=== PATIENT | female | born 1970 | race Caucasian/White ===

== ENCOUNTER → 2022-06-21 | Outpatient (CLI) | payer OTHER | LOC: M RAD 06:33 | PROVIDERS: ATTEND Physician Assistant Medical | DX: M25.532 Pain in left wrist (principal) ==

== ENCOUNTER 2023-09-20 08:48 | Emergency (ER) | payer OTHER ==
[~2023-09-20] VITALS: Ht 167.6 cm; Wt 69.9 kg
[2023-09-20 12:05] VITALS: BP 143/63; TEMP 98.7; O2SAT 97
[2023-09-20] MEDS: IBUPROFEN 600MG TAB PO ONE (12:32)
[2023-09-20] MEDS ORDERED: IBUP-1022 PO (13:33)
[2023-09-20] MEDS ORDERED: METH-1164 PO (13:33)
== END 2023-09-20 13:44 | disposition home or self-care (01) ==
LOC: M ED 08:48
DX: S43.402A Unspecified sprain of left shoulder joint, initial encounter (principal); S60.222A Contusion of left hand, initial encounter; X50.0XXA Overexertion from strenuous movement or load, initial encounter; Y92.9 Unspecified place or not applicable; Y93.89 Activity, other specified; Y99.0 Civilian activity done for income or pay

== ENCOUNTER → 2024-04-16 | Outpatient (CLI) | payer OTHER ==
[~2024-04-16] MED LIST: IBUP-1022 PO; METH-1164 PO
== END ==
LOC: M SOG 13:01
PROVIDERS: ATTEND Physician Assistant
DX: M25.531 Pain in right wrist (principal)